=== PATIENT | female | born 1970 | race Caucasian/White ===

== ENCOUNTER 2018-09-24 11:06 | Inpatient (IN) | payer MEDICAID, OTHER ==
[~2018-09-24] VITALS: Ht 172.7 cm; Wt 67.6 kg
[2018-09-24] VITALS (10 sets, daily range): BP systolic 91–122; BP diastolic 46–79
[2018-09-24] MEDS ORDERED: propofol 1000mg/100ml bottle 100 ML IV ONE (11:50)
[2018-09-24 11:55] LABS: ABG PCO2 (T) 55.3 mmHg (32.0-45.0); ABG PH (T) 7.235 (7.350-7.450); ALLEN'S TEST Positive; MINUTE VOLUME 8 L/min; PEEP 5 cm H2O; RESPIRATORY RATE 18 b/min; TIDAL VOLUME 475 mL
[2018-09-24 11:56] LABS: ABG BASE EXCESS -5.2 mmol/L (-2.0-3.0); ABG HCO3 22.9 mmol/L (22.0-26.0); FCOHb 0.7 % (0.5-1.5); FMetHb 0.1 % (0.3-1.12); FO2Hb 97.2 % (94-100); TOTAL HEMOGLOBIN 14.4 G/dl (12.0-16.0)
[2018-09-24] MEDS ORDERED: dexamethasone sod phosphate 10mg/ml inj IV STA (11:56)
[2018-09-24] MEDS ORDERED: UNABLE TO OBTAIN (12:12)
[2018-09-24 12:14] LABS: BASOPHILS % (AUTO) 0.1 % (0-1); EOSINOPHILS % (AUTO) 0.3 % (0-6); HEMOGLOBIN 13.9 g/dl (12.0-16.0); LYMPHOCYTES # (AUTO) 0.5 X10'3 (1.1-4.8); MEAN CORPUSCULAR HEMOGLOBIN 32.4 PG (27.0-31.0); MEAN CORPUSCULAR HGB CONC 33.1 g/dL (33.0-36.5); MEAN CORPUSCULAR VOLUME 97.9 FL (78-98); MEAN PLATELET VOLUME 7.6 FL (7.4-10.4); MONOCYTES # (AUTO) 0.1 X10'3 (0-0.9); MONOCYTES % (AUTO) 0.5 % (2-12); NEUTROPHILS # (AUTO) 16.2 X10'3 (1.8-7.7); NEUTROPHILS % (AUTO) 96.1 % (42-75); PLATELET COUNT 284 X10'3 (140-440); RED BLOOD COUNT 4.29 X10'6 (4.20-5.60); RED CELL DISTRIBUTION WIDTH 13.7 % (11.5-14.5); WHITE BLOOD COUNT 16.8 X10'3 (4.5-11.0)
--- NOTE | 2018-09-24 12:25 | NUR ---
PT'S PROPOFOL DRIP HAS BEEN INCREASED TO 10MCG/KG/MIN
[2018-09-24 12:31] LABS: ALANINE AMINOTRANSFERASE 31 U/L (12-78); ALBUMIN 3.4 G/DL (3.4-5.0); ALBUMIN/GLOBULIN RATIO 0.9 (1.1-1.5); ALKALINE PHOSPHATASE 69 IU/L (46-116); ANION GAP 7 (8-16); ASPARTATE AMINO TRANSFERASE 20 U/L (10-37); BILIRUBIN,TOTAL 0.3 MG/DL (0.1-1.0); BLOOD UREA NITROGEN 12 MG/DL (7-18); BUN/CREATININE RATIO 17.4 (6.6-38.0); CALCIUM 7.4 MG/DL (8.5-10.1); CHLORIDE 106 MMOL/L (99-107); CREATININE 0.69 MG/DL (0.40-0.90); GLUCOSE 137 MG/DL (70-104); MAGNESIUM 2.3 MG/DL (1.5-2.4); POTASSIUM 4.4 MMOL/L (3.5-5.1); SODIUM 139 MMOL/L (135-145); TOTAL CARBON DIOXIDE 25.6 MMOL/L (24-32); eGFR > 90 ML/MIN
--- NOTE | 2018-09-24 12:40 | NUR ---
PROPOFOL INCREASED TO 15MCG/KG/MIN. PT IS STILL MOVING A LITTLE
[2018-09-24 12:43] LABS: URINE HCG NEGATIVE (NEG)
[2018-09-24 12:44] LABS: CLARITY,URINE CLEAR (Clear); COLOR,URINE STRAW (Yellow); GLUCOSE, URINE 100 mg/dl (Neg); KETONES,URINE TRACE mg/dl (Neg); LEUKOCYTE ESTERASE ,URINE NEGATIVE (Neg); NITRITES, URINE NEGATIVE (Neg); OCCULT BLOOD,URINE TRACE-INTACT (Neg); PROTEIN,URINE NEGATIVE (Neg); UROBILINOGEN,URINE 0.2 E.U/dL (0.2-1.0)
[2018-09-24 12:49] LABS: UA COLLECTION TYPE FOLEY CATH
[2018-09-24 12:58] LABS: BACTERIA,URINE 2+ /HPF (Neg); MUCUS STRANDS NONE SEEN /LPF (Neg); RBC,URINE 0-2 /HPF (0-2); SQUAMOUS EPITHELIAL CELL,UR FEW /LPF (FEW); WBC,URINE 0-4 /HPF (0-4)
[2018-09-24] MEDS ORDERED: magnesium Cl slow-release 64mg tablet PO PRN (13:00)
[2018-09-24] MEDS ORDERED: magnesium 4gm in 100ml NS 100 ML IV PRN (13:00)
[2018-09-24] MEDS ORDERED: magnesium 2GM in 50ml NS 50 ML IV PRN (13:00)
[2018-09-24] MEDS ORDERED: sodium phosphate inj. 15 MMOL in dextrose 5%-water 150 ML IV PRN (13:00)
[2018-09-24] MEDS ORDERED: Neutra Phos packet PO PRN (13:00)
[2018-09-24] MEDS ORDERED: ondansetron/PF 4mg/2ml inj IV PRN (13:00)
[2018-09-24] MEDS ORDERED: potassium Cl 20 mEq SR tablet PO PRN ×2 (13:00)
[2018-09-24] MEDS ORDERED: morphine 4 MG/ML inj SYRINge IV PRN ×2 (13:00)
[2018-09-24] MEDS ORDERED: magnesium hydroxide 30ml (MOM) UD suspension PO PRN (13:00)
[2018-09-24] MEDS ORDERED: sodium phosphate inj. 30 MMOL in dextrose 5%-water 250 ML IV PRN (13:00)
--- NOTE | 2018-09-24 13:00 | NUR ---
INCREASED PROPOFOL TO 20MCG/KG/MIN BECAUSE PT IS STILL MOVING.
--- NOTE | 2018-09-24 13:15 | NUR ---
INCREASE PROPOFOL TO 25 MCG/KG/MIN BECAUSE STILL MOVING
[2018-09-24] MEDS: normal saline 1000ml 1,000 ML IV SCH (13:23)
--- NOTE | 2018-09-24 13:28 | NUR ---
INCREASE PROPOFOL TO 40MCG/KG/MIN. STILL MOVING AT TIME EVEN ON THIS DOSE BUT NOT VERY OFTEN.
--- NOTE | 2018-09-24 13:39 | NUR ---
INCREASED PROPOFOL TO 50MCG/KG/MIN. PT STILL MOVING ON OWN.
[2018-09-24 13:41] LABS: PARTIAL THROMBOPLASTIN TIME 23 SECONDS (22-32); PROTHROMBIN TIME 9.7 SECONDS (9.0-12.0)
[2018-09-24] MEDS ORDERED: methylPREDNISolone sod succ 125mg/2ml vial IV ONE (14:00)
--- NOTE | 2018-09-24 14:30 | NUR ---
Patient arrived via gurney from ER.
[2018-09-24] MEDS: K, MAG and/or Phos replacement - Verify level? MC SCH (14:55)
[2018-09-24] MEDS: pantoprazole 40 MG vial IV SCH (15:01)
[2018-09-24] MEDS: enoxaparin 40mg/0.4ml syringe SUBCUT SCH (15:02)
[2018-09-24 15:06] LABS: OXYGEN SATURATION (MIXED VEN) 87.8 % (60-80)
[2018-09-24] MEDS ORDERED: propofol 1000mg/100ml bottle 100 ML IV SCH (15:30)
[2018-09-24] MEDS: albuterol 2.5 MG/3 ML nebule NEB SCH ×3 (16:01→22:52)
[2018-09-24] MEDS ORDERED: pneumococcal 23-VAL P-sac vacc 25 mcg/0.5ml vial IMVAC ONE (16:15)
[2018-09-24] MEDS: propofol 1000mg/100ml bottle 100 ML IV SCH (16:32)
[2018-09-24] MEDS ORDERED: FLU VACC QUAD 2018(5 YR UP)/PF 60 MCG/0.5 ML SYRINGE IM ONE (16:40)
--- NOTE | 2018-09-24 16:54 | NUR ---
Attempted to contact Medical Records at [facility] related to stated "spots" on xray from June, or about, by shon Martines. LEft a message.
[2018-09-24] MEDS ORDERED: thiamine inj. 100 MG in normal saline 100ml IV soln 100 ML IV ONE (17:35)
[2018-09-24] MEDS ORDERED: haloperidol lactate 5mg/ml inj IM PRN (17:35)
[2018-09-24] MEDS ORDERED: dextrose 50%-water 50ml dispensing syringe IV PRN (17:35)
[2018-09-24] MEDS ORDERED: ALBU2.5V13 NEB (18:06)
--- NOTE | 2018-09-24 18:30 | NUR ---
Patient in room CICU 2016. I have received report and had the opportunity to ask questions and assume patient care.
--- NOTE | 2018-09-24 18:34 | NUR ---
Problems reprioritized. Patient report given, questions answered & plan of care reviewed with Marcela Castellanos RN.
[2018-09-24] MEDS: folic acid inj. 2 MG, thiamine inj. 100 MG, MVI, adult No.4 with vit. K 10 ML in dextro... IV SCH ×4 (19:17)
[2018-09-24] MEDS: vancomycin/NS 1 GM ADD-VANTAGE 250 ML IV SCH (19:24)
[2018-09-24] MEDS: LORazepam 2 mg/ml vial IV PRN ×2 (19:32→23:10)
[2018-09-25] VITALS (22 sets, daily range): BP systolic 91–119; BP diastolic 50–75
[2018-09-25] MEDS: normal saline 1000ml 1,000 ML IV SCH (02:16)
[2018-09-25] MEDS: albuterol 2.5 MG/3 ML nebule NEB SCH ×6 (02:37→23:02)
[2018-09-25 02:53] LABS: BASOPHILS % (AUTO) 0.1 % (0-1); EOSINOPHILS % (AUTO) 0 % (0-6); HEMATOCRIT 36.2 % (35.0-45.0); HEMOGLOBIN 12.2 g/dl (12.0-16.0); LYMPHOCYTES # (AUTO) 0.9 X10'3 (1.1-4.8); LYMPHOCYTES % (AUTO) 5.4 % (21-51); MEAN CORPUSCULAR HEMOGLOBIN 32.7 PG (27.0-31.0); MEAN CORPUSCULAR HGB CONC 33.7 g/dL (33.0-36.5); MEAN PLATELET VOLUME 7.4 FL (7.4-10.4); MONOCYTES # (AUTO) 0.3 X10'3 (0-0.9); MONOCYTES % (AUTO) 1.9 % (2-12); NEUTROPHILS % (AUTO) 92.6 % (42-75); PLATELET COUNT 289 X10'3 (140-440); RED BLOOD COUNT 3.73 X10'6 (4.20-5.60); RED CELL DISTRIBUTION WIDTH 13.7 % (11.5-14.5); WHITE BLOOD COUNT 16.2 X10'3 (4.5-11.0)
[2018-09-25 02:55] LABS: ABG BASE EXCESS 2.1 mmol/L (-2.0-3.0); ABG HCO3 25.3 mmol/L (22.0-26.0); ABG OXYGEN SATURATION 92.6 % (95-98); ABG PCO2 (T) 35.7 mmHg (32.0-45.0); ABG PH (T) 7.471 (7.350-7.450); ALLEN'S TEST Positive; FCOHb 0.3 % (0.5-1.5); FO2Hb 92.3 % (94-100); MINUTE VOLUME 10 L/min; PATIENT TEMPERATURE 37.5; PEEP 5 cm H2O; RESPIRATORY RATE 18 b/min; RESPIRATORY RATE (OBSERVED) 23 b/min; TIDAL VOLUME 400 mL; TOTAL HEMOGLOBIN 12.9 G/dl (12.0-16.0)
[2018-09-25 03:00] LABS: ALANINE AMINOTRANSFERASE 27 U/L (12-78); ALBUMIN 2.8 G/DL (3.4-5.0); ALBUMIN/GLOBULIN RATIO 0.9 (1.1-1.5); ALKALINE PHOSPHATASE 54 IU/L (46-116); ANION GAP 6 (8-16); ASPARTATE AMINO TRANSFERASE 17 U/L (10-37); BILIRUBIN,TOTAL 0.3 MG/DL (0.1-1.0); BLOOD UREA NITROGEN 11 MG/DL (7-18); BUN/CREATININE RATIO 15.5 (6.6-38.0); CALCIUM 7.9 MG/DL (8.5-10.1); CHLORIDE 107 MMOL/L (99-107); CREATININE 0.71 MG/DL (0.40-0.90); GLUCOSE 127 MG/DL (70-104); MAGNESIUM 2.2 MG/DL (1.5-2.4); PHOSPHORUS 1.7 MG/DL (2.3-4.5); POTASSIUM 3.8 MMOL/L (3.5-5.1); SODIUM 140 MMOL/L (135-145); TOTAL CARBON DIOXIDE 27.4 MMOL/L (24-32); TOTAL PROTEIN 5.9 G/DL (6.4-8.2); eGFR 89 ML/MIN
[2018-09-25] MEDS: propofol 1000mg/100ml bottle 100 ML IV SCH ×2 (03:02→07:01)
[2018-09-25] MEDS: vancomycin/NS 1 GM ADD-VANTAGE 250 ML IV SCH ×3 (03:14→20:54)
[2018-09-25] MEDS: LORazepam 2 mg/ml vial IV PRN (03:14)
[2018-09-25] MEDS: K, MAG and/or Phos replacement - Verify level? MC SCH (08:00)
--- NOTE | 2018-09-25 09:00 | NUR ---
Pt is cooperative with care, follows directions, moves around a bit in bed by self to reposition, answers questions appropriately by nodding head to yes and no, and squeezing hand.
[2018-09-25] MEDS: pantoprazole 40 MG vial IV SCH (10:01)
[2018-09-25] MEDS: folic acid inj. 2 MG, thiamine inj. 100 MG, MVI, adult No.4 with vit. K 10 ML in dextro... IV SCH ×4 (10:01)
[2018-09-25] MEDS: nicotine 21mg patch - 24 hr TD SCH (10:02)
[2018-09-25] MEDS: enoxaparin 40mg/0.4ml syringe SUBCUT SCH (10:02)
--- NOTE | 2018-09-25 10:59 | NUR ---
Initial: patient was emergently intubated for respiratory failure and asthma exacerbation per MD note. H/o asthma. Recommend continuous TF to meet nutrient needs if prolonged intubation. Will continue to follow. Recommendations: 1) If prolonged intubation and to receive TF, recommend continuous Vital AF with goal rate of 65 mL/hr 2) If above, prealbumin q M/TH; daily wt 3) Once extubated advance to regular diet as medically indicated Addendum: 09/25/18 at [address] Amended: Links added.
--- NOTE | 2018-09-25 11:00 | NUR ---
weaning parameters completed, restless, wants to have ETT out. attempting to reach up to ETT tube and remove. instructed not to do this, restraints remain in place.
--- NOTE | 2018-09-25 11:45 | NUR ---
1145 dr Swanson at bedside, orders to extubate.
--- NOTE | 2018-09-25 11:55 | NUR ---
pt self extubated, respiratory status stable, no stidor, O2 at 6 l/min via nasal cannula. drsg to RIJ redone and this was also pulled by the patient, but remains intact to neck. cooperative to care, instructed on basic use of call light not to get out of bed.
--- NOTE | 2018-09-25 15:34 | NUR ---
Patient in room CICU 2016. I have received report from magnolia grimes RN and had the opportunity to ask questions and assume patient care.
[2018-09-25] MEDS ORDERED: LORazepam 0.5 MG tablet PO PRN (16:50)
[2018-09-25] MEDS ORDERED: VANCOMYCIN LEVEL IV ONE (19:30)
--- NOTE | 2018-09-25 20:59 | NUR ---
RN Note -MD Communication Called Tristin Mae regarding IV fluids. OK to dc fluids and saline lock IV.
[2018-09-26] VITALS (17 sets, daily range): BP systolic 98–118; BP diastolic 55–79
[2018-09-26] MEDS ORDERED: ipratropium/albuterol 3ml nebule ONE (01:13)
[2018-09-26] MEDS ORDERED: ipratropium/albuterol 3ml nebule NEB PRN ×2 (01:15→10:15)
--- NOTE | 2018-09-26 01:35 | NUR ---
RN Note -MD Communication Called Tristin Mae regarding pt woke up at 0105 coughing and wheezing and desaturating. Turned O2 up to 6L NC. Received order for PRN breathing treatment. Pt responded well to treatment. Lung sounds clear. NC currently at 3L.
[2018-09-26] MEDS: albuterol 2.5 MG/3 ML nebule NEB SCH ×2 (02:52→07:46)
[2018-09-26 03:21] LABS: BASOPHILS % (AUTO) 0.2 % (0-1); EOSINOPHILS # (AUTO) 0.2 X10'3 (0-0.9); EOSINOPHILS % (AUTO) 1.6 % (0-6); HEMATOCRIT 34.3 % (35.0-45.0); HEMOGLOBIN 11.6 g/dl (12.0-16.0); LYMPHOCYTES # (AUTO) 1.5 X10'3 (1.1-4.8); LYMPHOCYTES % (AUTO) 10.6 % (21-51); MEAN CORPUSCULAR HEMOGLOBIN 32.6 PG (27.0-31.0); MEAN CORPUSCULAR HGB CONC 33.7 g/dL (33.0-36.5); MEAN CORPUSCULAR VOLUME 96.9 FL (78-98); MEAN PLATELET VOLUME 7.3 FL (7.4-10.4); MONOCYTES # (AUTO) 0.5 X10'3 (0-0.9); MONOCYTES % (AUTO) 3.8 % (2-12); NEUTROPHILS # (AUTO) 11.8 X10'3 (1.8-7.7); NEUTROPHILS % (AUTO) 83.8 % (42-75); PLATELET COUNT 259 X10'3 (140-440); RED BLOOD COUNT 3.54 X10'6 (4.20-5.60); RED CELL DISTRIBUTION WIDTH 13.9 % (11.5-14.5); WHITE BLOOD COUNT 14.1 X10'3 (4.5-11.0)
[2018-09-26 03:29] LABS: ALANINE AMINOTRANSFERASE 26 U/L (12-78); ALBUMIN 2.8 G/DL (3.4-5.0); ALBUMIN/GLOBULIN RATIO 0.9 (1.1-1.5); ANION GAP 7 (8-16); ASPARTATE AMINO TRANSFERASE 19 U/L (10-37); BILIRUBIN,TOTAL 0.2 MG/DL (0.1-1.0); BLOOD UREA NITROGEN 15 MG/DL (7-18); BUN/CREATININE RATIO 18.8 (6.6-38.0); CALCIUM 7.8 MG/DL (8.5-10.1); CHLORIDE 110 MMOL/L (99-107); GLUCOSE 97 MG/DL (70-104); POTASSIUM 3.9 MMOL/L (3.5-5.1); SODIUM 143 MMOL/L (135-145); TOTAL CARBON DIOXIDE 26.1 MMOL/L (24-32); TOTAL PROTEIN 5.9 G/DL (6.4-8.2); eGFR 78 ML/MIN
[2018-09-26 03:30] LABS: ALKALINE PHOSPHATASE 48 IU/L (46-116)
[2018-09-26] MEDS: vancomycin/NS 1 GM ADD-VANTAGE 250 ML IV SCH (04:53)
--- NOTE | 2018-09-26 06:30 | NUR ---
Patient in room CICU 2013. I have received report from Mac RN and had the opportunity to ask questions and assume patient care.
[2018-09-26] MEDS ORDERED: thiamine 100mg tablet PO SCH (08:00)
[2018-09-26] MEDS ORDERED: multivitamins, therapeutics tablet PO SCH (08:00)
[2018-09-26] MEDS ORDERED: folic acid 1mg tablet PO SCH (08:00)
[2018-09-26] MEDS: K, MAG and/or Phos replacement - Verify level? MC SCH (08:00)
[2018-09-26] MEDS: pantoprazole 40 MG vial IV SCH (08:33)
[2018-09-26] MEDS: nicotine 21mg patch - 24 hr TD SCH (08:35)
[2018-09-26] MEDS: enoxaparin 40mg/0.4ml syringe SUBCUT SCH (08:36)
--- NOTE | 2018-09-26 10:00 | NUR ---
rounds with Dr Swanson, new orders received to transfer to nursing floor.
--- NOTE | 2018-09-26 11:00 | NUR ---
ambulated with PT without problems, tolerated well.
[2018-09-26] MEDS: ciprofloxacin 250mg tablet PO SCH ×2 (13:15→19:23)
--- NOTE | 2018-09-26 14:28 | NUR ---
1400 20 g peiferal IV started to right hand, RIJ triple lumen disconitnued hemostasis achieved , drsg applied.
--- NOTE | 2018-09-26 15:00 | NUR ---
transported via wheelchair to nursing floor, all belongings taken.
--- NOTE | 2018-09-26 15:15 | NUR ---
pt arrived in w/c. oriented to room call light in place bed in lowest position.
--- NOTE | 2018-09-26 18:33 | NUR ---
Problems reprioritized. Patient report given, questions answered & plan of care reviewed with Sandrine MURILLO.
--- NOTE | 2018-09-26 19:28 | NUR ---
IV to right hand appears to be field start. Daytime RN states IV was placed today as well as patient. Patient refusing new IV.
[2018-09-26] MEDS ORDERED: albuterol 2.5 MG/3 ML nebule NEB SCH (20:00)
[2018-09-27] VITALS: BP 109/62
[2018-09-27 05:02] LABS: BASOPHILS # (AUTO) 0.1 X10'3 (0-0.2); BASOPHILS % (AUTO) 0.5 % (0-1); EOSINOPHILS # (AUTO) 0.3 X10'3 (0-0.9); HEMOGLOBIN 12.6 g/dl (12.0-16.0); LYMPHOCYTES # (AUTO) 2.9 X10'3 (1.1-4.8); LYMPHOCYTES % (AUTO) 29.7 % (21-51); MEAN CORPUSCULAR HEMOGLOBIN 32.7 PG (27.0-31.0); MEAN CORPUSCULAR VOLUME 96.1 FL (78-98); MEAN PLATELET VOLUME 7.9 FL (7.4-10.4); MONOCYTES # (AUTO) 0.5 X10'3 (0-0.9); MONOCYTES % (AUTO) 5.5 % (2-12); NEUTROPHILS % (AUTO) 61.3 % (42-75); PLATELET COUNT 257 X10'3 (140-440); RED BLOOD COUNT 3.85 X10'6 (4.20-5.60); RED CELL DISTRIBUTION WIDTH 13.9 % (11.5-14.5); WHITE BLOOD COUNT 9.8 X10'3 (4.5-11.0)
[2018-09-27 05:21] LABS: ALANINE AMINOTRANSFERASE 27 U/L (12-78); ALBUMIN 2.7 G/DL (3.4-5.0); ALBUMIN/GLOBULIN RATIO 0.8 (1.1-1.5); ALKALINE PHOSPHATASE 53 IU/L (46-116); ANION GAP 8 (8-16); ASPARTATE AMINO TRANSFERASE 19 U/L (10-37); BILIRUBIN,TOTAL 0.4 MG/DL (0.1-1.0); BLOOD UREA NITROGEN 14 MG/DL (7-18); BUN/CREATININE RATIO 19.4 (6.6-38.0); CALCIUM 8.4 MG/DL (8.5-10.1); CHLORIDE 106 MMOL/L (99-107); CREATININE 0.72 MG/DL (0.40-0.90); GLUCOSE 93 MG/DL (70-104); MAGNESIUM 1.7 MG/DL (1.5-2.4); PHOSPHORUS 3.2 MG/DL (2.3-4.5); POTASSIUM 3.8 MMOL/L (3.5-5.1); SODIUM 141 MMOL/L (135-145); TOTAL CARBON DIOXIDE 27.1 MMOL/L (24-32); eGFR 88 ML/MIN
--- NOTE | 2018-09-27 06:05 | NUR ---
Patient in room PIP[facility] 347. I have received report from Sandrine Castellanos RN and had the opportunity to ask questions and assume patient care.
--- NOTE | 2018-09-27 06:27 | NUR ---
Problems reprioritized. Patient report given, questions answered & plan of care reviewed with LIDIA Roth.
[2018-09-27 07:11] VITALS: BP 107/77
[2018-09-27] MEDS ORDERED: pantoprazole 40mg Tablet.DR PO SCH (07:30)
[2018-09-27] MEDS ORDERED: lactobacillus rhamnosus 10,000 MMU CELLS/CAPSULE PO SCH (08:00)
[2018-09-27] MEDS: K, MAG and/or Phos replacement - Verify level? MC SCH (08:00)
[2018-09-27 08:27] VITALS: BP 107/73
[2018-09-27] MEDS: ciprofloxacin 250mg tablet PO SCH (08:29)
[2018-09-27] MEDS: enoxaparin 40mg/0.4ml syringe SUBCUT SCH (08:30)
[2018-09-27] MEDS: nicotine 21mg patch - 24 hr TD SCH (08:30)
[2018-09-27] MEDS ORDERED: CIPR250T4 PO (09:22)
[2018-09-27 11:10] VITALS: BP 112/76
[2018-09-27 12:19] VITALS: BP 119/89
--- NOTE | 2018-09-27 13:40 | NUR ---
Patient discharged. PIV removed by LIDIA Abreu. Education given and patient verbalized understanding. Patient will follow up with primary. Patient was wheeled down while I was at lunch.
--- NOTE | 2018-09-27 15:28 | NUR ---
Pt's d/c'd home before SS assessment completed. SS referral, closed.
[2018-09-29] MEDS ORDERED: methylnaltrexone br 12mg/0.6ml inj***SubQ only SQ SCH (08:00)
== END 2018-09-27 13:45 | disposition home or self-care (01) | DRG 208 ==
LOC: ER 11:07 → ED HOLD 12:56 → CICU 2S 13:57 → SUR 3N 09-26 12:00
PROVIDERS: ADMIT Internal Medicine Critical Care Medicine; ATTEND Internal Medicine Critical Care Medicine
PROC: 5A1935Z Respiratory Ventilation, Less than 24 Consecutive Hours (ICD-10-PCS; principal; 2018-09-24)
PROC: 0D9670Z Drainage of Stomach with Drainage Device, Via Natural or Artificial Opening (ICD-10-PCS; 2018-09-24)
PROC: 02HV33Z Insertion of Infusion Device into Superior Vena Cava, Percutaneous Approach (ICD-10-PCS; 2018-09-24)
PROC: B548ZZA Ultrasonography of Superior Vena Cava, Guidance (ICD-10-PCS; 2018-09-24)
DX: J96.01 Acute respiratory failure with hypoxia (principal); J44.1 Chronic obstructive pulmonary disease with (acute) exacerbation; J96.02 Acute respiratory failure with hypercapnia; F10.10 Alcohol abuse, uncomplicated; I10 Essential (primary) hypertension; F17.200 Nicotine dependence, unspecified, uncomplicated; Z28.21 Immunization not carried out because of patient refusal; Z88.1 Allergy status to other antibiotic agents
CPT/HCPCS: 36415; 36556; 36600; 71045; 80053; 80202; 81001; 81025; 82803; 82810; 82948; 83605; 83735; 84100; 84145; 85018; 85025; 85610; 85730; 87040; 87070; 87077; 87186; 87502; 87503; 93005; 94002; 94003; 94640; 94760; 96374; 97110; 97116; 97162; 97530; 99291; C9113; G0378; J1100; J1650; J2060; J2704; J2930; J3370; J3411; J3490; J7060; Q2037